=== PATIENT | male | born 1960 | race Caucasian/White ===

== ENCOUNTER 2017-11-13 08:28 | Outpatient (CLI) | payer BC ==
--- NOTE | 2017-11-13 11:35 | CT ---
LOW DOSE SCREENING LUNG CT: Date: 11/13/17 HISTORY: Current smoker, with a 35 year history of smoking. COMPARISON: None. TECHNIQUE: Noncontrast low dose screening CT performed in the axial plane following institution protocol. Reformatted images are submitted for interpretation. FINDINGS: Lung Screening Specific (Lung-RADS): Lung-RADS Category 2. 7.0 mm nodule in the left lower lobe with central punctate calcification. No suspicious masses or evidence of primary malignancy. Potential Significant Incidentals (Lung-RADS Category S): Fullness of the left adrenal gland, incomp letely evaluated. Pulmonary Incidentals: Minimal blebs in the left and right lung apex. Other Incidentals: Calcified left hilar lymph node. IMPRESSION: 1. Lung-RADS Category 2: Benign finding. 7.0 mm nodule in the left lower lobe with central calcific ation. 2. Lung-RADS Category S: Incompletely evaluated fullness of left adrenal gland. Adrenal mass protoc ol CT is recommended. 3. Other incidental findings as above. 4. Annual low dose screening CT in 1 year is recommended. POS: [facility]
== END 2017-11-13 08:29 | disposition home or self-care (01) ==
LOC: CT 08:28
PROVIDERS: ATTEND Family Medicine
DX: F17.210 Nicotine dependence, cigarettes, uncomplicated (principal); R91.1 Solitary pulmonary nodule; E27.8 Other specified disorders of adrenal gland
CPT/HCPCS: G0297

== ENCOUNTER 2017-11-16 16:00 | Outpatient (CLI) | payer BC | END 2017-11-16 16:01 | disposition home or self-care (01) | LOC: SLEEPLAB 16:00 | PROVIDERS: ATTEND Family Medicine | DX: G47.33 Obstructive sleep apnea (adult) (pediatric) (principal); R53.83 Other fatigue; E66.9 Obesity, unspecified; I10 Essential (primary) hypertension | CPT/HCPCS: 95806 ==

== ENCOUNTER 2017-11-23 09:48 | Outpatient (CLI) | payer BC ==
[2017-11-23] MEDS ORDERED: Iopamidol 370 76% 100 ML VIAL ONE (13:12)
== END 2017-11-23 09:49 | disposition home or self-care (01) ==
LOC: BICCT 09:48
PROVIDERS: ATTEND Family Medicine
DX: E27.8 Other specified disorders of adrenal gland (principal)
CPT/HCPCS: 74170

== ENCOUNTER 2017-11-23 19:30 | Outpatient (CLI) | payer BC | END 2017-11-23 19:31 | disposition home or self-care (01) | LOC: SLEEPLAB 19:30 | PROVIDERS: ATTEND Family Medicine | DX: G47.33 Obstructive sleep apnea (adult) (pediatric) (principal); R53.83 Other fatigue; E66.9 Obesity, unspecified; R06.83 Snoring; I10 Essential (primary) hypertension | CPT/HCPCS: 95811 ==

== ENCOUNTER 2018-06-18 08:22 | Outpatient (CLI) | payer BC ==
--- NOTE | 2018-06-18 10:11 | CT ---
ABDOMEN CT SCAN WITH AND WITHOUT IV CONTRAST: History: 57-year-old male with history of follow up adrenal mass. FINDINGS: Again noted is an approximately 1.7 x 2.5 cm diameter left adrenal mass with a much smaller, less nadia n 1 cm diameter nodule of the lateral limb of the left adrenal gland. Noncontrast Hounsfield units ap proximately 18 Hounsfield units. Absolute washout and relative washout have values which are consiste nt with that of an adenoma. The lung bases are clear of acute process. Liver, gallbladder, pancreas, spleen, and visualized kidneys are unremarkable. No renal calculus or obstruction. IMPRESSION: Stable left adrenal mass, evidence for left adrenal adenoma with a much smaller second left adrenal n odule, less than 1 cm, possibly an adenoma as well. Stable appearance from prior study. POS: [facility]
[2018-06-18] MEDS ORDERED: Iopamidol 370 76% 100 ML VIAL ONE (13:28)
== END 2018-06-18 08:23 | disposition home or self-care (01) ==
LOC: BICCT 08:22
PROVIDERS: ATTEND Urology
DX: E27.9 Disorder of adrenal gland, unspecified (principal); D35.02 Benign neoplasm of left adrenal gland; E27.8 Other specified disorders of adrenal gland
CPT/HCPCS: 74170

== ENCOUNTER 2018-10-23 12:21 | Outpatient (CLI) | payer BC ==
--- NOTE | 2018-10-23 14:03 | MRI ---
MRI OF THE BRAIN WITHOUT CONTRAST: Date: 10/23/18 HISTORY: Meniere's disease with dizzy spells and ringing in bilateral ears. TECHNIQUE: Multiplanar, multisequence MR images were obtained of the brain without contrast. FINDINGS: There are scattered foci of high FLAIR signal in the subcortical and periventricular white matter, li cheng secondary to small vessel ischemic disease. No restricted diffusion is seen to suggest an acute infarction. There is no evidence of hydrocephalus, intracranial hemorrhage, or extra-axial fluid collections. The expected flow-voids are present. The corpus callosum, pituitary, and craniocervical junction are unr emarkable. No obvious abnormality is seen in either internal auditory canal. The cochlea and semicirc ular canals are symmetric. A small amount of fluid is seen in the left mastoid air cells. IMPRESSION: 1. Small vessel ischemic disease without acute intracranial abnormality. 2. Partial opacification of left mastoid air cells. POS: [facility]
== END 2018-10-23 12:22 | disposition home or self-care (01) ==
LOC: BICMRI 12:21
PROVIDERS: ATTEND Family Medicine
DX: H81.09 Meniere's disease, unspecified ear (principal); I67.82 Cerebral ischemia; H74.8X2 Other specified disorders of left middle ear and mastoid
CPT/HCPCS: 70551

== ENCOUNTER 2018-11-14 07:37 | Outpatient (CLI) | payer BC ==
--- NOTE | 2018-11-14 09:04 | CT ---
CT SCAN CHEST LOW DOSE WITHOUT CONTRAST FOR LUNG CANCER SCREENING: HISTORY: Encounter for screening for lung cancer. Tobacco abuse. The patient is a current smoker with a-pack -[id number]-35-years' smoking history. COMPARISON: 11/13/2017 FINDINGS: The 7 mm nodule in the left lower lobe with central punctate calcification is stable. No new masses or nodules are seen. Calcified subcarinal and left hilar lymph nodes are present. No blebs are noted in the lung apices. No pleural or pericardial effusions are seen. There are degenerative changes of the spine. The visualized portion of the left adrenal nodule is stable. IMPRESSION: Lung-RADS category 2-Benign finding. RECOMMENDATIONS: LDCT of the chest is recommended in 12 months. POS: [facility]
== END 2018-11-14 07:38 | disposition home or self-care (01) ==
LOC: CT 07:37
PROVIDERS: ATTEND Family Medicine
DX: F17.210 Nicotine dependence, cigarettes, uncomplicated (principal)
CPT/HCPCS: G0297

== ENCOUNTER 2020-10-19 14:11 | Outpatient (CLI) | payer BC ==
[~2020-10-19 14:11] MED LIST: Iopamidol 370 76% 100 ML VIAL ONE
--- NOTE | 2020-10-19 15:05 | CT ---
Exam: Abdomen CT with and without contrast HISTORY: Evaluate left adrenal mass COMPARISON: 06/18/2018, 11/23/2017 TECHNIQUE: Abdomen CT is performed with and without contrast following urogram protocol. Coronal refo rmatted images are submitted for interpretation FINDINGS: Lung bases: Calcified granuloma in the left lower lobe with central calcification measuring 0.9 cm, u nchanged Heart: Normal heart size Aorta: Normal caliber Liver: Appropriate enhancement. No enhancing masses. Spleen: Appropriate enhancement Pancreas: Appropriate enhancement Adrenal glands: Appropriate attenuation and enhancement of the right adrenal gland. In the left adren al gland, redemonstration of a hypodense mass measuring 2.4 x 1.1 cm. Previously, the mass measured 1.7 x 2.5 cm. On the noncontrast sequence, attenuation coefficient is 19 Hounsfield units, previously 19 Hounsfield units. On the arterial phase image, attenuation coefficient is 60 Hounsfield units. On the delayed images, attenuation coefficient is 31 Hounsfield units. The absolute washout is 70.7%. Relative washout is 48.3%. Both the absolute and relative washout are consistent with adenoma. There is a second smaller hypodense mass in the lateral limb of the left adrenal gland, measuring 0.8 cm. Lesion is similar to the previous examination. Attenuation coefficient is 2 Hounsfield units. Lymph nodes: No gastrohepatic, retrocrural or periportal lymphadenopathy Portal vein: Patent Gallbladder: Unremarkable Kidneys: Noncontrast: No evidence of nephrolithiasis. Contrast: Symmetric enhancement of the kidneys. Delayed: Symmetric excretion. Mesentery: No mass, nephropathy, free air or free fluid Alimentary canal: Limited evaluation due to lack of oral contrast administration. Visualized alimenta ry canal is unremarkable. No lytic or blastic lesions in the osseous structures IMPRESSION: 1. Essentially stable left adrenal mass. Based on the absolute and relative washout, left adrenal mas s is consistent with an adrenal adenoma. 2. Stable smaller second nodule in the left adrenal gland with a noncontrast attenuation coefficient of 2 Hounsfield units, compatible with a 0.8 cm adenoma. Transcribed Date/Time: 10/19/2020 3:43 PM
== END 2020-10-19 14:12 | disposition home or self-care (01) ==
LOC: BICCT 14:11
PROVIDERS: ATTEND Urology
DX: D35.02 Benign neoplasm of left adrenal gland (principal); N40.1 Benign prostatic hyperplasia with lower urinary tract symptoms; N13.8 Other obstructive and reflux uropathy; E27.8 Other specified disorders of adrenal gland
CPT/HCPCS: 74170; Q9967

== ENCOUNTER 2020-11-06 14:02 | Outpatient (CLI) | payer BC ==
[2020-11-06 16:48] LABS: #Basophils 0.1 10x3/uL (0.0-0.2); #Eosinphils 0.3 10x3/uL (0.0-0.5); #Monocytes 0.8 10x3/uL (0.0-1.1); #Neutrophils 3.7 10x3/uL (1.5-8.4); %Basophils 1.5 % (0.0-2.0); %Eosinophils 4.1 % (0.0-6.0); %Monocytes 10.5 % (0.0-10.0); %Neutrophils 47.6 % (40.0-75.0); Mean Corpuscular HGB CONC 32.6 g/dL (32.0-36.0); Mean Corpuscular Hemoglobin 30.3 pg (27.0-33.0); Mean Platelet Volume 11.7 fl (7.4-10.4); Platelet Count 148 10x3/uL (150-450); RBC Distribution Width 13.6 % (11.5-14.5); Red Blood Cell (RBC) Count 4.29 10x6/uL (4.32-5.72); White Blood Cell (WBC) Count 7.8 10x3/uL (3.5-10.5)
[2020-11-06 17:08] LABS: ALT (SGPT) 26 U/L (8-55); AST (SGOT) 21 U/L (5-34); Albumin 4.2 g/dL (3.5-5.0); Alkaline Phosphatase 90 U/L (40-110); Anion Gap 11 mmol/L (10-20); BUN (Urea Nitrogen) 18 mg/dL (8.4-25.7); Bilirubin, Total 0.4 mg/dL (0.2-1.2); Calc. Creatinine Clearance 0 mL/min (70-130); Calcium 8.8 mg/dL (7.8-10.44); Carbon Dioxide 26 mmol/L (22-29); Chloride 107 mmol/L (98-107); Glucose 92 mg/dL (70-105); Potassium 4.3 mmol/L (3.5-5.1); Protein, Total 6.2 g/dL (6.0-8.3); Sodium 140 mmol/L (136-145)
[2020-11-07 01:47] LABS: SARS-CoV-2 PCR by NAA Not Detected (NotDetected)
== END 2020-11-06 14:03 | disposition home or self-care (01) ==
LOC: LABBT 14:02
PROVIDERS: ATTEND Internal Medicine Cardiovascular Disease
DX: Z01.812 Encounter for preprocedural laboratory examination (principal); Z20.822 Contact with and (suspected) exposure to COVID-19; R07.89 Other chest pain
CPT/HCPCS: 80053; 85025; 87635; U0003; U0005

== ENCOUNTER 2020-11-11 05:55 | Day surgery (SDC) | payer BC ==
[2020-11-10 09:35] VITALS: BMI 37.2
[2020-11-11] MEDS ORDERED: Lidocaine 1% (PF) 30 ML VIAL ONE (06:38)
[2020-11-11] MEDS ORDERED: Midazolam HCl 2 mg/2 ml Vial ONE (07:15)
[2020-11-11] MEDS ORDERED: Fentanyl 100 MCG/2 ML VIAL ONE (07:15)
[2020-11-11] MEDS ORDERED: Nitroglycerin 100MG/250ML BOT 250 ML ONE (07:43)
[2020-11-11] MEDS ORDERED: Iopamidol 370 76% 100 ML VIAL ONE (11:00)
== END 2020-11-11 12:43 | disposition home or self-care (01) ==
LOC: CCL 05:55
PROVIDERS: ATTEND Internal Medicine Cardiovascular Disease
PROC: 4A023N7 Measurement of Cardiac Sampling and Pressure, Left Heart, Percutaneous Approach (ICD-10-PCS; principal; 2020-11-11)
PROC: B2111ZZ Fluoroscopy of Multiple Coronary Arteries using Low Osmolar Contrast (ICD-10-PCS; principal; 2020-11-11)
DX: R07.89 Other chest pain (principal); I10 Essential (primary) hypertension; E78.5 Hyperlipidemia, unspecified; J44.9 Chronic obstructive pulmonary disease, unspecified; K21.9 Gastro-esophageal reflux disease without esophagitis; E78.00 Pure hypercholesterolemia, unspecified; G47.33 Obstructive sleep apnea (adult) (pediatric); E66.9 Obesity, unspecified; Z68.37 Body mass index [BMI] 37.0-37.9, adult; Z87.891 Personal history of nicotine dependence; Z79.82 Long term (current) use of aspirin; Z79.899 Other long term (current) drug therapy; Z88.0 Allergy status to penicillin; Z88.2 Allergy status to sulfonamides
CPT/HCPCS: 76942; 93458; 99152; 99153; J2001; J2250; J3010; Q9967

== ENCOUNTER 2021-01-18 07:57 | Outpatient (CLI) | payer BC | END 2021-01-18 07:58 | disposition home or self-care (01) | LOC: BICCT 07:57 | PROVIDERS: ATTEND Family Medicine | DX: Z12.2 Encounter for screening for malignant neoplasm of respiratory organs (principal); J44.9 Chronic obstructive pulmonary disease, unspecified; F17.210 Nicotine dependence, cigarettes, uncomplicated | CPT/HCPCS: 71271 ==

== ENCOUNTER 2021-05-04 08:16 | Outpatient (CLI) | payer BC ==
[2021-05-04 08:43] LABS: Anion Gap 12 mmol/L (10-20); BUN (Urea Nitrogen) 16 mg/dL (8.4-25.7); Calc. Creatinine Clearance 0 mL/min (70-130); Calcium 9.3 mg/dL (7.8-10.44); Carbon Dioxide 25 mmol/L (22-29); Chloride 106 mmol/L (98-107); Glucose 98 mg/dL (70-105); Potassium 4.6 mmol/L (3.5-5.1); Sodium 138 mmol/L (136-145)
[2021-05-04 08:47] LABS: Prothrombin Time 10.7 sec (9.5-12.1)
[2021-05-04 09:08] LABS: Hemoglobin 14.3 g/dL (13.5-17.5); Mean Corpuscular HGB CONC 32.7 g/dL (32.0-36.0); Mean Corpuscular Hemoglobin 29.9 pg (27.0-33.0); Mean Corpuscular Volume 91.2 fl (81.2-95.1); Mean Platelet Volume 10.9 fl (7.4-10.4); Platelet Count 145 10x3/uL (150-450); RBC Distribution Width 13.4 % (11.5-14.5); Red Blood Cell (RBC) Count 4.79 10x6/uL (4.32-5.72); White Blood Cell (WBC) Count 6.6 10x3/uL (3.5-10.5)
[2021-05-04 15:47] LABS: SARS-CoV-2 PCR by NAA Not Detected (NotDetected)
== END 2021-05-04 08:17 | disposition home or self-care (01) ==
LOC: LABBT 08:16
PROVIDERS: ATTEND Internal Medicine Cardiovascular Disease
DX: Z01.812 Encounter for preprocedural laboratory examination (principal); I48.3 Typical atrial flutter; I47.1 Supraventricular tachycardia; Z20.822 Contact with and (suspected) exposure to COVID-19
CPT/HCPCS: 80048; 85027; 85610; U0003; U0005

== ENCOUNTER → 2021-05-06 | Day surgery (SDC) | payer BC ==
[2021-05-04 15:15] VITALS: BMI 39.1
[~2021-05-06] MED LIST changes: +Fentanyl 100 MCG/2 ML VIAL ONE; +Heparin 10,000 UNITS/ 10 ML VIAL ONE; +Heparin 25,000 units/D5W 500 ML ONE; -Iopamidol 370 76% 100 ML VIAL ONE; +Isoproterenol 0.2 MG/1 ML AMP ONE; +Meperidine HCl/PF 25 MG/ML VIAL ONE; +Midazolam HCl 2 mg/2 ml Vial ONE; +PHENYLEPHRINE-NS 100 MCG/ML 10 ML SYRINGE ONE; +PROPOFOL 200 MG/20 ML VIAL ONE; +Propofol 1,000 MG/100 ML VIAL IV ONE; +Protamine Sulfate 50 MG/5 ML VIAL ONE; +Rocuronium Bromide 10 MG/ML (10ML VIAL) ONE; +Succinylcholine 200 MG/10 ml SYRINGE FS ONE
== END ==
LOC: SDC 05:55
PROVIDERS: ATTEND Internal Medicine Cardiovascular Disease
PROC: 02583ZZ Destruction of Conduction Mechanism, Percutaneous Approach (ICD-10-PCS; principal; 2021-05-06)
PROC: 5A2204Z Restoration of Cardiac Rhythm, Single (ICD-10-PCS; principal; 2021-05-06)
PROC: 4A0234Z Measurement of Cardiac Electrical Activity, Percutaneous Approach (ICD-10-PCS; principal; 2021-05-06)
PROC: 4A023FZ Measurement of Cardiac Rhythm, Percutaneous Approach (ICD-10-PCS; principal; 2021-05-06)
PROC: 02K83ZZ Map Conduction Mechanism, Percutaneous Approach (ICD-10-PCS; principal; 2021-05-06)
PROC: B244ZZZ Ultrasonography of Right Heart (ICD-10-PCS; principal; 2021-05-06)
DX: I48.3 Typical atrial flutter (principal); I48.0 Paroxysmal atrial fibrillation; I47.1 Supraventricular tachycardia; I47.2 Ventricular tachycardia; I49.5 Sick sinus syndrome; J44.9 Chronic obstructive pulmonary disease, unspecified; I10 Essential (primary) hypertension; E78.5 Hyperlipidemia, unspecified; K21.9 Gastro-esophageal reflux disease without esophagitis; G47.33 Obstructive sleep apnea (adult) (pediatric); Z87.891 Personal history of nicotine dependence; Z79.01 Long term (current) use of anticoagulants; Z79.82 Long term (current) use of aspirin; Z79.899 Other long term (current) drug therapy; Z88.0 Allergy status to penicillin; Z88.1 Allergy status to other antibiotic agents; Z88.2 Allergy status to sulfonamides
CPT/HCPCS: 76942; 85347; 92960; 93005; 93613; 93656; 93657; 93662; C1730; C1731; C1732; C1759; C1894; C2630; J1644; J2175; J2250; J2704; J2720; J3010

== ENCOUNTER 2021-12-24 12:46 | Outpatient (CLI) | payer BC ==
[2021-12-24 13:39] LABS: Hemoglobin 14.7 g/dL (13.5-17.5); Platelet Count 153 10x3/uL (150-450); RBC Distribution Width 13.2 % (11.5-14.5); White Blood Cell (WBC) Count 7.8 10x3/uL (3.5-10.5)
[2021-12-24 13:42] LABS: Bilirubin Neg (Negative); Blood, Urine Negative (Negative); Clarity Clear (Clear); Glucose, Urine (Dipstick) Normal (Negative); Ketone, Urine Negative (Negative); Leukocyte Negative (Negative); Nitrite Negative (Negative); Protein, Urine (Dipstick) Negative (Neg-Trace); Specific Gravity, Urine 1.015 (1.002-1.036); Urobilinogen Normal mg/dL (Less than 2)
[2021-12-24 13:47] LABS: INR-International Normal Ratio 0.9; PTT 24.9 sec (22.0-33.0); Prothrombin Time 10.3 sec (9.5-12.1)
[2021-12-24 13:51] LABS: Anion Gap 11 mmol/L (10-20); BUN (Urea Nitrogen) 14 mg/dL (8.4-25.7); Calc. Creatinine Clearance 0 mL/min (70-130); Calcium 8.9 mg/dL (7.8-10.44); Carbon Dioxide 25 mmol/L (23-31); Chloride 107 mmol/L (98-107); Glucose 96 mg/dL (80-115); Potassium 4.4 mmol/L (3.5-5.1); Sodium 139 mmol/L (136-145)
[2021-12-24 14:02] LABS: Bacteria/HPF None Seen HPF (None Seen); RBC/HPF None Seen HPF (0-3); Squamous Epithelial 0-3 HPF (0-3); WBC/HPF None Seen HPF (0-3)
[2021-12-24 22:56] LABS: SARS-CoV-2 PCR by NAA Not Detected (NotDetected)
== END 2021-12-24 12:47 | disposition home or self-care (01) ==
LOC: LABBT 12:46
PROVIDERS: ATTEND Urology
DX: Z01.818 Encounter for other preprocedural examination (principal); R35.0 Frequency of micturition; N43.3 Hydrocele, unspecified; Z80.51 Family history of malignant neoplasm of kidney; Z87.891 Personal history of nicotine dependence; Z12.5 Encounter for screening for malignant neoplasm of prostate; J44.9 Chronic obstructive pulmonary disease, unspecified; N52.9 Male erectile dysfunction, unspecified; E66.9 Obesity, unspecified; D35.02 Benign neoplasm of left adrenal gland; N50.3 Cyst of epididymis; Z20.822 Contact with and (suspected) exposure to COVID-19
CPT/HCPCS: 80048; 81001; 85027; 85610; 85730; 87086; U0003; U0005

== ENCOUNTER → 2021-12-29 | Day surgery (SDC) | payer BC ==
[2021-12-27 13:23] VITALS: BMI 39.9
[~2021-12-29] MED LIST changes: +B & O ONE; -Fentanyl 100 MCG/2 ML VIAL ONE; -Heparin 10,000 UNITS/ 10 ML VIAL ONE; -Heparin 25,000 units/D5W 500 ML ONE; -Isoproterenol 0.2 MG/1 ML AMP ONE; +Levofloxacin 500 mg/D5W 100 ml Premix Bag ONE; +Lidocaine 1% PF 5 ML VIAL ONE; -Meperidine HCl/PF 25 MG/ML VIAL ONE; -Midazolam HCl 2 mg/2 ml Vial ONE; +Oxybutynin 5 MG TAB ONE; -PHENYLEPHRINE-NS 100 MCG/ML 10 ML SYRINGE ONE; +Phenazopyridine HCl 100 MG TAB ONE; -Protamine Sulfate 50 MG/5 ML VIAL ONE; -Rocuronium Bromide 10 MG/ML (10ML VIAL) ONE; -Succinylcholine 200 MG/10 ml SYRINGE FS ONE
== END | disposition home or self-care (01) ==
LOC: SDC 05:43
PROVIDERS: ATTEND Urology
PROC: 0T7D8DZ Dilation of Urethra with Intraluminal Device, Via Natural or Artificial Opening Endoscopic (ICD-10-PCS; principal; 2021-12-29)
DX: N40.0 Benign prostatic hyperplasia without lower urinary tract symptoms (principal); N32.89 Other specified disorders of bladder; Z79.82 Long term (current) use of aspirin; Z79.899 Other long term (current) drug therapy; Z88.0 Allergy status to penicillin; Z88.2 Allergy status to sulfonamides
CPT/HCPCS: J1956; J2704

== ENCOUNTER 2022-01-28 07:34 | Outpatient (CLI) | payer BC | END 2022-01-28 07:35 | disposition home or self-care (01) | LOC: BICCT 07:34 | PROVIDERS: ATTEND Family Medicine | DX: Z12.2 Encounter for screening for malignant neoplasm of respiratory organs (principal); J44.9 Chronic obstructive pulmonary disease, unspecified; Z87.891 Personal history of nicotine dependence | CPT/HCPCS: 71271 ==

== ENCOUNTER 2023-02-15 05:44 | Day surgery (SDC) | payer BC ==
[2023-02-06 09:49] VITALS: BMI 39.1
[2023-02-15] MEDS ORDERED: fentaNYL PF 100 MCG/2 ML SYRINGE ONE (06:45)
[2023-02-15] MEDS ORDERED: Bupivacaine 0.25% HCL 30 ML VIAL ONE (06:51)
[2023-02-15] MEDS ORDERED: Bacitracin Zinc Ointment 30 gm TUBE ONE (06:51)
[2023-02-15] MEDS ORDERED: Levofloxacin 500 mg/D5W 100 ml Premix Bag ONE (07:11)
[2023-02-15] MEDS ORDERED: HYDROmorphone 0.5 MG/0.5 ML SYRINGE ONE (07:28)
[2023-02-15] MEDS ORDERED: Ondansetron PF 4 MG/2 ML Vial ONE (07:38)
[2023-02-15] MEDS ORDERED: Ketorolac Tromethamine 30 MG/ML VIAL ONE (07:38)
[2023-02-15] MEDS ORDERED: Lidocaine 1% PF 5 ML VIAL ONE (07:38)
[2023-02-15] MEDS ORDERED: PROPOFOL 200 MG/20 ML VIAL ONE (07:38)
[2023-02-15] MEDS ORDERED: Ondansetron HCl/PF 4 MG/2 ML Vial IVP PRN (08:07)
[2023-02-15] MEDS ORDERED: Promethazine HCl 25 MG/ML VIAL IM PRN (08:07)
[2023-02-15] MEDS ORDERED: HYDROmorphone 2 MG/ML VIAL SLOW IVP PRN (08:07)
[2023-02-15] MEDS ORDERED: fentaNYL 50 mcg/mL 1 mL Vial ONE ×2 (08:40→09:37)
[2023-02-15] MEDS ORDERED: Morphine 2 MG/ML VIAL ONE (10:27)
[2023-02-15] MEDS ORDERED: HYDROcodone/Acetaminophen 5/325 mg Tablet ONE ×2 (10:28→15:18)
== END 2023-02-15 16:08 | disposition home or self-care (01) ==
LOC: SDC 05:44
PROVIDERS: ATTEND Urology
PROC: 0VBF0ZZ Excision of Right Spermatic Cord, Open Approach (ICD-10-PCS; principal; 2023-02-15)
DX: N43.3 Hydrocele, unspecified (principal); N40.0 Benign prostatic hyperplasia without lower urinary tract symptoms
CPT/HCPCS: 88302; C1747; J1170; J1885; J1956; J2272; J2405; J2704; J3010; S0020

== ENCOUNTER 2023-03-09 14:38 | Outpatient (CLI) | payer BC | END 2023-03-09 14:39 | disposition home or self-care (01) | LOC: RAD 14:38 | PROVIDERS: ATTEND Urology | DX: N43.3 Hydrocele, unspecified (principal) | CPT/HCPCS: 76870; 93976 ==

== ENCOUNTER 2023-03-09 15:39 | Outpatient (CLI) | payer BC ==
[2023-03-09 16:41] LABS: Hemoglobin 13.8 g/dL (13.5-17.5); Mean Corpuscular HGB CONC 32.5 g/dL (32.0-36.0); Mean Corpuscular Hemoglobin 29.8 pg (27.0-33.0); Mean Corpuscular Volume 91.6 fl (81.2-95.1); Mean Platelet Volume 10.7 fl (7.4-10.4); Platelet Count 178 10x3/uL (150-450); RBC Distribution Width 13.2 % (11.5-14.5); Red Blood Cell (RBC) Count 4.63 10x6/uL (4.32-5.72); White Blood Cell (WBC) Count 11.6 10x3/uL (3.5-10.5)
[2023-03-09 16:53] LABS: Bilirubin Neg (Negative); Blood, Urine Negative (Negative); Clarity Clear (Clear); Glucose, Urine (Dipstick) Normal (Negative); Ketone, Urine Negative (Negative); Leukocyte Negative (Negative); Nitrite Negative (Negative); Protein, Urine (Dipstick) 15 mg/dl (Neg-Trace); Specific Gravity, Urine 1.015 (1.005-1.030); Urobilinogen Normal mg/dL (Less than 2)
[2023-03-09 16:54] LABS: Anion Gap 11 mmol/L (10-20); BUN (Urea Nitrogen) 14 mg/dL (8.4-25.7); Calc. Creatinine Clearance 0 mL/min (70-130); Carbon Dioxide 26 mmol/L (23-31); Chloride 105 mmol/L (98-107); Estimated GFR 78; Glucose 101 mg/dL (80-115); Potassium 4.3 mmol/L (3.5-5.1); Sodium 138 mmol/L (136-145)
[2023-03-09 17:05] LABS: PTT 25.6 sec (22.0-33.0); Prothrombin Time 10.3 sec (9.5-12.1)
[2023-03-09 17:06] LABS: Bacteria/HPF Rare-Few HPF (None Seen); Mucous/LPF 1+ LPF (<2+); RBC/HPF 0-3 HPF (0-3); Squamous Epithelial 0-3 HPF (0-3); WBC/HPF 0-3 HPF (0-3)
== END 2023-03-09 15:40 | disposition home or self-care (01) ==
LOC: LABBT 15:39
PROVIDERS: ATTEND Urology
DX: Z01.818 Encounter for other preprocedural examination (principal); N43.3 Hydrocele, unspecified
CPT/HCPCS: 80048; 81001; 85027; 85610; 85730; 87086; 93005; 93010

== ENCOUNTER 2023-03-10 06:03 | Day surgery (SDC) | payer BC ==
[2023-03-09 16:00] VITALS: BMI 38.8
[2023-03-10] MEDS ORDERED: Bacitracin Zinc Ointment 30 gm TUBE ONE (06:26)
[2023-03-10] MEDS ORDERED: Bupivacaine 0.25% HCL 30 ML VIAL ONE (06:26)
[2023-03-10] MEDS ORDERED: Levofloxacin 500 mg/D5W 100 ml Premix Bag ONE (06:34)
[2023-03-10] MEDS ORDERED: Vancomycin 1 GM/200 ML (FROZEN) BAG ONE (06:34)
[2023-03-10] MEDS ORDERED: fentaNYL 50 mcg/mL 1 mL Vial ONE ×3 (07:17→08:51)
[2023-03-10] MEDS ORDERED: Metoclopramide HCl 10 MG/2 ML VIAL ONE (07:41)
[2023-03-10] MEDS ORDERED: PROPOFOL 200 MG/20 ML VIAL ONE (07:41)
[2023-03-10] MEDS ORDERED: Ondansetron PF 4 MG/2 ML Vial ONE (07:41)
[2023-03-10] MEDS ORDERED: Vancomycin 1 GM VIAL ONE (07:47)
[2023-03-10] MEDS ORDERED: HYDROcodone/Acetaminophen 5/325 mg Tablet ONE (09:43)
== END 2023-03-10 10:15 | disposition home or self-care (01) ==
LOC: SDC 06:03
PROVIDERS: ATTEND Urology
PROC: 0V950ZZ Drainage of Scrotum, Open Approach (ICD-10-PCS; principal; 2023-03-10)
DX: S30.22XA Contusion of scrotum and testes, initial encounter (principal); N40.1 Benign prostatic hyperplasia with lower urinary tract symptoms; N43.3 Hydrocele, unspecified; R35.0 Frequency of micturition; I10 Essential (primary) hypertension; E78.5 Hyperlipidemia, unspecified; J44.9 Chronic obstructive pulmonary disease, unspecified; R91.1 Solitary pulmonary nodule; I48.91 Unspecified atrial fibrillation; Z87.891 Personal history of nicotine dependence; Z79.899 Other long term (current) drug therapy; Z88.0 Allergy status to penicillin; Z88.1 Allergy status to other antibiotic agents; Z88.2 Allergy status to sulfonamides; Z88.8 Allergy status to other drugs, medicaments and biological substances; X58.XXXA Exposure to other specified factors, initial encounter
CPT/HCPCS: 87070; 87077; 87186; 87205; J1956; J2405; J2704; J2765; J3010; J3370; J3370-JW; S0020